=== PATIENT | male | born 1965 | race Caucasian/White ===

== ENCOUNTER → 2018-03-13 | Outpatient (CLI) | payer BC ==
--- NOTE | 2018-03-14 08:23 | ECHOF ---
Referral Reason:I10 hypertension MEASUREMENTS -------- HEIGHT: 180.3 cm WEIGHT: 147.4 kg BP: 132/90 RVIDd: 3.6 cm (< 3.3) IVSd: 1.3 cm (0.6 - 1.1) LVIDd: 5.0 cm (3.9 - 5.3) LVPWd: 1.4 cm (0.6 - 1.1) IVSs: 1.8 cm LVIDs: 3.4 cm LVPWs: 1.6 cm LA Diam: 3.4 cm (2.7 - 3.8) LAESV Index (A-L): 21.28 ml/m Ao Diam: 4.2 cm (2.0 - 3.7) AV Cusp: 2.7 cm (1.5 - 2.6) MV EXCURSION: 17.701 mm (> 18.000) MV EF SLOPE: 53 mm/s (70 - 150) EPSS: 0.3 cm MV E Jayden: 0.74 m/s MV DecT: 282 ms MV A Jayden: 0.84 m/s MV E/A Ratio: 0.88 FINDINGS -------- Sinus rhythm. This was a technically adequate study. The left ventricular size is normal. There is moderate concentric left ventricular hypertrophy. O verall left ventricular systolic function is normal with, an EF between 55 - 60 %. The right ventricle is mildly enlarged. Normal LA size by volume 22+/-6 ml/m2. The right atrium is normal in size. The aortic valve is trileaflet and appears structurally normal. Mild mitral annular calcification present. The tricuspid valve appears structurally normal. The pulmonic valve was not well visualized. The aortic root is dilated measuring 4.2cm. IVC Not well visulized. There is no pericardial effusion. CONCLUSIONS -------- 1. Sinus rhythm. 2. This was a technically adequate study. 3. The left ventricular size is normal. 4. There is moderate concentric left ventricular hypertrophy. 5. Overall left ventricular systolic function is normal with, an EF between 55 - 60 %. 6. The right ventricle is mildly enlarged. 7. Normal LA size by volume 22+/-6 ml/m2. 8. The right atrium is normal in size. 9. The aortic valve is trileaflet and appears structurally normal. 10. Mild mitral annular calcification present. 11. The tricuspid valve appears structurally normal. 12. The pulmonic valve was not well visualized. 13. The aortic root is dilated measuring 4.2cm. 14. IVC Not well visulized. 15. There is no pericardial effusion. DATA RECOVERY PLANNER: Funmilayo Guillermo RDCS
== END | disposition home or self-care (01) ==
LOC: RADECHMAIN 13:03
PROVIDERS: ATTEND Internal Medicine
DX: I51.7 Cardiomegaly (principal); I77.819 Aortic ectasia, unspecified site; I10 Essential (primary) hypertension
CPT/HCPCS: 93306

== ENCOUNTER 2025-03-14 17:07 | Emergency (ER) | payer BC ==
--- NOTE | 2025-03-14 17:28 | ED ---
Extremity Problem HPI - General Chief complaint: Extremity Problem,Nontraumatic Stated complaint: L leg pain, Hypertension Time Seen by Provider: 03/14/25 17:21 Source: patient, RN notes reviewed Mode of arrival: ambulatory Limitations: no limitations - History of Present Illness Initial comments: This is a 59-year-old male with history including CAD, hypertension, COPD and AAA presenting for left leg swelling x 3 weeks. 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 Also endorses shortness of breath and dyspnea with exertion that is worsening.. Patient states both legs are swollen but left leg is worsening, noting some clear fluid discharge from the leg earlier today. Patient denies fever, chills, open wound on the leg, color change, significant tenderness. Denies history of DVT, CHF, AMI. Denies chest pain, dizziness, hemoptysis, frothy sputum, dyspnea when supine. Denies abdominal pain, N/V/D. MD Complaint: extremity swelling Onset/Timin -: week(s) Location: left, lower extremity History of Same: No - Related Data Allergies Allergy/AdvReac Type Severity Reaction Status Date / Time No Known Allergies Allergy Verified 03/14/25 17:13 Review of Systems ROS Statement: Those systems with pertinent positive or pertinent negative responses have been documented in the HPI. ROS Other: All systems not noted in ROS Statement are negative. Past Medical History History of Any Multi-Drug Resistant Organisms: None Reported Past Psychological History: No Psychological Hx Reported Smoking Status: Former smoker Past Alcohol Use History: None Reported Past Drug Use History: None Reported General Exam Limitations: no limitations General appearance: alert, in no apparent distress, obese Head exam: Present: atraumatic, normocephalic, normal inspection Eye exam: Present: normal appearance, PERRL, EOMI. Absent: scleral icterus, conjunctival injection, periorbital swelling ENT exam: Present: normal exam, mucous membranes moist Neck exam: Present: normal inspection. Absent: tenderness, meningismus, lymphadenopathy Respiratory exam: Present: decreased breath sounds. Absent: respiratory distress, wheezes, rales, rhonchi, stridor, accessory muscle use, prolonged expiratory Cardiovascular Exam: Present: regular rate, normal rhythm, normal heart sounds. Absent: systolic murmur, diastolic murmur, rubs, gallop, clicks GI/Abdominal exam: Present: soft, distended, normal bowel sounds. Absent: tenderness, guarding, rebound, rigid Extremities exam: Present: full ROM, normal capillary refill, joint swelling (Positive BLE pitting edema extending to knees, left worse than right. Negative warmth, erythema, tenderness, open wound, active weeping.), calf tenderness (Positive left Homans' sign), other (Positive distal lower extremity neurovascular and motor function intact. Dorsalis pedis pulse +2 bilaterally. Cap refill less than 2 seconds.). Absent: tenderness, pedal edema Back exam: Present: normal inspection Neurological exam: Present: alert, oriented X3, CN II-XII intact Psychiatric exam: Present: normal affect, normal mood Skin exam: Present: warm, dry, intact, normal color. Absent: rash Course Vital Signs 03/14/25 03/14/25 03/14/25 17:08 18:12 20:01 Temperature 98.1 F Pulse Rate 90 91 79 Respiratory 24 22 24 Rate Blood Pressure 183/106 173/74 181/73 O2 Sat by Pulse 96 93 L 96 Oximetry Medical Decision Making - Medical Decision Making Was pt. sent in by a medical professional or institution (, PA, SPECIAL COLLECTIONS LIBRARIAN, urgent care, hospital, or detention...) When possible be specific @ -Patient sent from well now urgent care Did you speak to anyone other than the patient for history (EMS, parent, family, police, friend...)? What history was obtained from this source @ -[No] Did you review nursing and triage notes (agree or disagree)? Why? @ -[I reviewed and agree with nursing and triage notes] Were old charts reviewed (outside hosp., previous admission, EMS record, old EKG, old radiological studies, urgent care reports/EKG's, detention records)? Report findings @ -[No old charts were reviewed] Differential Diagnosis (chest pain, altered mental status, abdominal pain women, abdominal pain men, vaginal bleeding, weakness, fever, dyspnea, syncope, headache, dizziness, GI bleed, back pain, seizure, CVA, palpatations, mental health, musculoskeletal)? @ -Differential Musculoskeletal Muscular strain, contusion, ligament sprain, fracture, arthritis, septic arthritis, bursitis, cellulitis, muscle spasm, nerve compression, DVT, arterial occlusion, herpes zoster, electrolyte abnormality, tumor.... This is not meant to be in all inclusive list differential Dyspnea: Coronary syndrome, arrhythmia, tamponade, asthma, COPD, pulmonary embolism, pneumonia, pneumothorax, pulmonary effusion, anaphylaxis, diabetic ketoacidosis, flailed chest, pulmonary contusion, diaphragmatic rupture, anemia, neuromuscular, this is not meant to be an all-inclusive list. EKG interpreted by me (3pts min.). @ -Sinus rhythm without ST deviation or T wave inversion. Ventricular rate 83 bpm, YASH 186 ms, QRS 108 ms, QTc 406 ms. X-rays interpreted by me (1pt min.). @ -[None done] CT interpreted by me (1pt min.). @ -[None done] U/S interpreted by me (1pt. min.). @ -[None done] What testing was considered but not performed or refused? (CT, X-rays, U/S, labs)? Why? @ -[None] What meds were considered but not given or refused? Why? @ -[None] Did you discuss the management of the patient with other professionals (professionals i.e. , PA, SPECIAL COLLECTIONS LIBRARIAN, lab, RT, psych nurse, social and human services assistant, director of outside sales, teacher, front desk officer, sample case porter)? Give summary @ -[No] Was smoking cessation discussed for >3mins.? @ -[No] Was critical care preformed (if so, how long)? @ -[No] Were there social determinants of health that impacted care today? How? (Homelessness, low income, unemployed, alcoholism, drug addiction, transportation, low edu. Level, literacy, decrease access to med. care, detention, rehab)? @ -[No] Was there de-escalation of care discussed even if they declined (Discuss DNR or withdrawal of care, Hospice)? DNR status @ -[No] What co-morbidities impacted this encounter? (DM, HTN, Smoking, COPD, CAD, Cancer, CVA, ARF, Chemo, Hep., AIDS, mental health diagnosis, sleep apnea, morbid obesity)? @ -CAD, hypertension Was patient admitted / discharged? Hospital course, mention meds given and route, prescriptions, significant lab abnormalities, going to OR and other pertinent info. @ -[hospital course] Undiagnosed new problem with uncertain prognosis? @ -[No] Drug Therapy requiring intensive monitoring for toxicity (Heparin, Nitro, Insulin, Cardizem)? @ -[No] Were any procedures done? @ -[No] Diagnosis/symptom? @ -[default] Acute, or Chronic, or Acute on Chronic? @ -Acute Uncomplicated (without systemic symptoms) or Complicated (systemic symptoms)? @ -Uncomplicated Side effects of treatment? @ -[No] Exacerbation, Progression, or Severe Exacerbation? @ -[No] Poses a threat to life or bodily function? How? (Chest pain, [place], VA, pneumonia, PE, COPD, DKA, ARF, appy, cholecystitis, CVA, Diverticulitis, Homicidal, Suicidal, threat to staff... and all critical care pts) @ -[No] - Lab Data Result diagrams: 03/14/25 17:46 03/14/25 17:46 Lab Results 03/14/25 03/14/25 03/14/25 Range/Units 17:46 17:46 17:46 WBC 9.26 (4.50-10.00) 10*3/uL RBC 4.32 L (4.40-5.60) 10*6/uL Hgb 12.8 L (13.0-17.0) g/dL Hct 38.7 L (39.6-50.0) % MCV 89.6 (80.0-97.0) fL MCH 29.6 (27.0-32.0) pg MCHC 33.1 (32.0-37.0) g/dL Plt Count 245 (140-440) 10*3/uL MPV 10.1 (9.5-12.2) fL Immature Gran % (Auto) 0.3 % Neutrophils % 71.6 % Lymphocytes % 15.7 % Monocytes % 7.0 % Eosinophils % 4.9 % Basophils % 0.5 % Immature Gran # 0.03 (0.00-0.04) 10*3/uL Neutrophils # 6.63 (1.80-7.70) 10*3/uL Lymphocytes # 1.45 (0.90-5.00) 10*3/uL Monocytes # 0.65 (0.20-1.00) 10*3/uL Eosinophils # 0.45 H (0.04-0.35) 10*3/uL Basophils # 0.05 (0.00-0.10) 10*3/uL PT 10.8 (10.0-12.5) sec INR 1.0 (<1.2) APTT 23.7 (22.0-30.0) sec D-Dimer 4.60 H (<0.60) mg/L FEU Sodium 137 (137-145) mmol/L Potassium 4.1 (3.5-5.1) mmol/L Chloride 101 (98-107) mmol/L Carbon Dioxide 27 (22-30) mmol/L Anion Gap 9 mmol/L BUN 21 H (9-20) mg/dL Creatinine 0.87 (0.66-1.25) mg/dL Est GFR (CKD-EPI)AfAm >90 (>60 ml/min/1.73 sqM) Est GFR (CKD-EPI)NonAf >90 (>60 ml/min/1.73 sqM) Glucose 182 H (74-99) mg/dL Calcium 8.9 (8.4-10.2) mg/dL Magnesium 1.8 (1.6-2.3) mg/dL Total Bilirubin 0.7 (0.2-1.3) mg/dL AST 27 (17-59) U/L ALT 23 (4-49) U/L Alkaline Phosphatase 54 (38-126) U/L Troponin I (0.000-0.034) ng/mL NT-Pro-B Natriuret Pep 29 pg/mL Total Protein 7.0 (6.3-8.2) g/dL Albumin 3.9 (3.5-5.0) g/dL 04/20/25 Range/Units 17:46 WBC (4.50-10.00) 10*3/uL RBC (4.40-5.60) 10*6/uL Hgb (13.0-17.0) g/dL Hct (39.6-50.0) % MCV (80.0-97.0) fL MCH (27.0-32.0) pg MCHC (32.0-37.0) g/dL Plt Count (140-440) 10*3/uL MPV (9.5-12.2) fL Immature Gran % (Auto) % Neutrophils % % Lymphocytes % % Monocytes % % Eosinophils % % Basophils % % Immature Gran # (0.00-0.04) 10*3/uL Neutrophils # (1.80-7.70) 10*3/uL Lymphocytes # (0.90-5.00) 10*3/uL Monocytes # (0.20-1.00) 10*3/uL Eosinophils # (0.04-0.35) 10*3/uL Basophils # (0.00-0.10) 10*3/uL PT (10.0-12.5) sec INR (<1.2) APTT (22.0-30.0) sec D-Dimer (<0.60) mg/L FEU Sodium (137-145) mmol/L Potassium (3.5-5.1) mmol/L Chloride (98-107) mmol/L Carbon Dioxide (22-30) mmol/L Anion Gap mmol/L BUN (9-20) mg/dL Creatinine (0.66-1.25) mg/dL Est GFR (CKD-EPI)AfAm (>60 ml/min/1.73 sqM) Est GFR (CKD-EPI)NonAf (>60 ml/min/1.73 sqM) Glucose (74-99) mg/dL Calcium (8.4-10.2) mg/dL Magnesium (1.6-2.3) mg/dL Total Bilirubin (0.2-1.3) mg/dL AST (17-59) U/L ALT (4-49) U/L Alkaline Phosphatase (38-126) U/L Troponin I <0.012 (0.000-0.034) ng/mL NT-Pro-B Natriuret Pep pg/mL Total Protein (6.3-8.2) g/dL Albumin (3.5-5.0) g/dL Disposition Clinical Impression: Lower leg edema Disposition: HOME SELF-CARE Condition: Good Instructions (If sedation given, give patient instructions): Leg Edema (ED) Additional Instructions: Compression stocking and leg elevation. Continue previously prescribed he does not use. Follow-up with PCP in the next 24-48 hours. Recommended repeat ultrasound in 7 days if swelling persist. Is patient prescribed a controlled substance at d/c from ED?: No Referrals: Irene Bettencourt MD [Primary Care Provider] - 1-2 days Time of Disposition: 20:30
[2025-03-14 17:50] LABS: Basophils # (A) 0.05 10*3/uL (0.00-0.10); Basophils % (A) 0.5 %; Eosinophils # (A) 0.45 10*3/uL (0.04-0.35); Eosinophils % (A) 4.9 %; HCT 38.7 % (39.6-50.0); HGB 12.8 g/dL (13.0-17.0); Lymphocytes # (A) 1.45 10*3/uL (0.90-5.00); Lymphocytes % (A) 15.7 %; MCH 29.6 pg (27.0-32.0); MCHC 33.1 g/dL (32.0-37.0); MCV 89.6 fL (80.0-97.0); Mean Platelet Volume 10.1 fL (9.5-12.2); Monocytes # (A) 0.65 10*3/uL (0.20-1.00); Neutrophils # (A) 6.63 10*3/uL (1.80-7.70); Neutrophils % (A) 71.6 %; Platelet Count 245 10*3/uL (140-440); RBC 4.32 10*6/uL (4.40-5.60); RDW 14.2 % (11.5-14.5); WBC 9.26 10*3/uL (4.50-10.00)
[2025-03-14 18:11] LABS: ALT 23 U/L (4-49); African American GFR (CKD) >90 (>60 ml/min/1.73 sqM); Albumin 3.9 g/dL (3.5-5.0); Anion Gap 9 mmol/L; Blood Urea Nitrogen 21 mg/dL (9-20); Calcium 8.9 mg/dL (8.4-10.2); Carbon Dioxide 27 mmol/L (22-30); Chloride 101 mmol/L (98-107); Glucose 182 mg/dL (74-99); Non-African American GFR(CKD) >90 (>60 ml/min/1.73 sqM); Sodium 137 mmol/L (137-145); Total Bilirubin 0.7 mg/dL (0.2-1.3)
[2025-03-14 18:14] LABS: AST 27 U/L (17-59); Alkaline Phosphatase 54 U/L (38-126); Magnesium 1.8 mg/dL (1.6-2.3); Potassium 4.1 mmol/L (3.5-5.1)
[2025-03-14 18:17] LABS: Partial Thromboplastin Time 23.7 sec (22.0-30.0); Prothrombin Time 10.8 sec (10.0-12.5)
[2025-03-14 18:20] LABS: NT-Pro-B-Type Natriuretic Pept 29 pg/mL
--- NOTE | 2025-03-14 18:21 | XR ---
EXAMINATION TYPE: XR chest 2V DATE OF EXAM: 03/14/2025 6:14 PM COMPARISON: None. CLINICAL INDICATION: Male, 59 years old with history of Chest Pain; [facility] TECHNIQUE: XR chest 2V Frontal and lateral views of the chest. FINDINGS: Lungs/Pleura: There is no evidence of pleural effusion, focal consolidation, or pneumothorax. Pulmonary vascularity: Unremarkable. Heart/mediastinum: Cardiomediastinal silhouette is unremarkable. Musculoskeletal: No acute osseous pathology. Other findings: None IMPRESSION: No acute cardiopulmonary disease/process. [facility], , 03/14/2025 6:18 PM
--- NOTE | 2025-03-14 18:56 | US ---
EXAMINATION TYPE: US venous doppler duplex LE LT DATE OF EXAM: 03/14/2025 6:47 PM COMPARISON: NONE CLINICAL INDICATION: Male, 59 years old with history of Worsened edema; 317lb male with increased swe lling to left leg, but his whole body is starting to swell also, HTN, no h/o dvt TECHNIQUE: The lower extremity deep venous system is examined utilizing real time linear array sonog edmund with graded compression, color doppler sonography, and spectral doppler. SIDE PERFORMED: Left FINDINGS: VESSELS IMAGED: Common Femoral Vein Deep Femoral Vein Greater Saphenous Vein * Femoral Vein Popliteal Vein Small Saphenous Vein * Proximal Calf Veins (* superficial vessels) Left Leg: Negative for DVT, Color Doppler imaging shows patency of the vessels. Spectral waveforms a re within normal limits. IMPRESSION: No ultrasound evidence for deep venous thrombosis. [facility], , 03/14/2025 6:53 PM
--- NOTE | 2025-03-14 19:55 | CT ---
EXAMINATION TYPE: CT angio chest DATE OF EXAM: 03/14/2025 7:41 PM COMPARISON: None available. CLINICAL INDICATION: Male, 59 years old with history of Elevated D-dimer, SOB/MATHEWS; elevated d-dimer, SOB TECHNIQUE/CONTRAST: CTA scan of the thorax is performed with IV Contrast, patient injected with 100 mL of Isovue 370, MIP images are created and reviewed these are created on a separate workstation.. CT DLP: 1441.9 mGycm, Automated exposure control for dose reduction was used. FINDINGS: Pulmonary Artery: Nearly nondiagnostic examination for violation of acute pulmonary embolus within th e lumbar, segmental and subsegmental pulmonary artery branches. No definite main pulmonary embolism. Lungs/Pleura: No evidence of focal consolidation, pleural effusion or pneumothorax. Airway: Large airways are patent. Heart: Heart is within normal limits for size. Vasculature: No evidence of aortic aneurysm. No acute focal dissection. Mediastinum: No gross evidence of adenopathy. Musculoskeletal: No acute osseous abnormalities Soft Tissues/lymph nodes: Unremarkable. Lower neck: No significant findings. Upper Abdomen: Diffuse low-attenuation to the liver parenchyma. Nonobstructing calculus in the partia lly visualized left kidney. Small subcentimeter hypoattenuating lesions in the partially visualized l iver, which are too small accurately characterize. Colonic diverticulosis. IMPRESSION: 1. Essentially nondiagnostic examination for acute pulmonary embolism due to suboptimal timing contr ast bolus. No definite main acute pulmonary embolism. Consider repeat examination if clinically warra nted. 2. No acute pulmonary pathology. [facility], , 03/14/2025 7:52 PM
[2025-03-14] MEDS: FUROSEMIDE 10 MG/ML 4 ML VIAL IV STA (19:58)
[2025-03-14 20:38] VITALS: BP 171/86; PULSE 88; RESP 22; TEMP 97.6
== END 2025-03-14 20:38 | disposition home or self-care (01) ==
LOC: EC 17:07
DX: R60.0 Localized edema (principal); I10 Essential (primary) hypertension; I25.10 Atherosclerotic heart disease of native coronary artery without angina pectoris; Z87.891 Personal history of nicotine dependence
CPT/HCPCS: 36415; 93005; 85379; 83880; 80053; 83735; 84484; 85025; 85610; 85730; 71046; 93971; 71275; 99284; 96374; Q9967; J1938